=== PATIENT | male | born 1935 | race Caucasian/White ===

== ENCOUNTER → 2018-06-25 | Outpatient (CLI) | payer MEDICARE, OTHER ==
[~2018-06-25] MED LIST: GADOBUTROL 10 MMOL/10 ML VIAL ONE
[2018-06-25 18:43] LABS: CREATININE 1.78 mg/dL (0.7-1.3)
== END | disposition home or self-care (01) ==
LOC: EDBD → RAD 17:02
PROVIDERS: ATTEND Urology
DX: N28.89 Other specified disorders of kidney and ureter (principal)
CPT/HCPCS: 36415; 72197; 74183; 82565; A9585

== ENCOUNTER → 2018-06-26 | Outpatient (CLI) | payer MEDICARE, OTHER | END | disposition home or self-care (01) | LOC: RAD 09:28 | PROVIDERS: ATTEND Urology | DX: N28.89 Other specified disorders of kidney and ureter (principal) | CPT/HCPCS: 36415; 76700; 84410 ==